=== PATIENT | female | born 1940 | race Caucasian/White ===

== ENCOUNTER 2019-07-12 08:29 | Day surgery (SDC) | payer MEDICARE ==
--- NOTE | 2019-07-12 07:42 | HP ---
DATE OF SURGERY: 07/12/2019 HISTORY OF PRESENT ILLNESS: The patient is a 78 year-old problems with food going down prior to . CT scan revealed hiatal hernia. She has history of tiny gallstone in the past. No prior upper endoscopy. She is in need of upper endoscopy for evaluation at this point. PAST MEDICAL HISTORY: Hypothyroidism. PAST SURGICAL HISTORY: Hysterectomy. Thyroid surgery in the past. MEDICATIONS: Levothyroxine. ALLERGIES: NKDA. FAMILY HISTORY: Stroke. Heart disease. Cancer. Alzheimer's. SOCIAL HISTORY: No alcohol abuse. REVIEW OF SYSTEMS: Fourteen systems reviewed. No chest pain or palpitations other systems negative or noncontributory as above and per preadmission questionnaire. PHYSICAL EXAMINATION: GENERAL: No acute distress. HEENT: Sclerae nonicteric. NECK: No JVD. CHEST: Equal excursion, nonlabored breathing. CVS: Regular rate and rhythm. ABDOMEN: Soft. No peritoneal signs. EXTREMITIES: No significant edema. NEURO: Alert, moving extremities symmetrically. No gross motor deficits noted. IMPRESSION: History of hiatal hernia, history of some food going down problems. I feel the patient would benefit from upper endoscopy for further evaluation of gastritis, peptic ulcer disease, general risk of bleeding or infection, risk of bowel injury or perforation possibly requiring open procedure, risk of missed or nondiagnosis or incomplete exam possibly requiring barium swallow, other studies or procedures, general risk of anesthesia or sedation. She understands if she has an isolated narrowed area may consider dilating it with a balloon. Otherwise general risk of anesthesia, deep venous thrombosis, pulmonary embolism, pneumonia but not limited to. She understands if does have narrowed area that is dilated she might need to be done again down the road. She understands and agrees to the planned procedure and will proceed with EGD with possible biopsy, possible dilatation as an outpatient.
[2019-07-12] MEDS ORDERED: Lactated Ringers 1,000 ML IV SCH (09:00)
[2019-07-12] MEDS ORDERED: DIPRIVAN 200 MG/20 ML IV ONE (10:16)
[2019-07-12 12:14] VITALS: O2SAT 94
[2019-07-12 12:22] VITALS: BP 162/84; PULSE 57
--- NOTE | 2019-07-12 15:12 | OP ---
SURGERY DATE/TIME: 07/12/2019 1024 PREOPERATIVE DIAGNOSIS: Epigastric pain, reflux and dysphagia. POSTOPERATIVE DIAGNOSES: 1) Minimal gastritis versus normal variation in stomach. 2) Hiatal hernia. 3) Symptomatic distal esophageal narrowing and spasm above hiatal hernia without evidence of any mass. PROCEDURES: 1) EGD with cold biopsy of the antrum to evaluate for Helicobacter pylori. 2) Esophageal dilatation distal esophageal narrowing and spasm (size 20 balloon dilator). SURGEON: Dr. Adal York. ANESTHESIA: MAC. ESTIMATED BLOOD LOSS: Minimal. INDICATIONS: As noted above. Risks and benefits explained in detail and not limited to and consent obtained. DESCRIPTION OF PROCEDURE AND FINDINGS: The patient is taken to the endoscopy room. MAC anesthesia introduced. After official time out and no disagreement with planned procedure, video gastroscope easily passed down the oropharynx to proximal esophagus. There was an area of narrowing and spasm in the distal esophagus right above a moderate sized hiatal hernia. There were no signs of any obvious mass or Richey's in this area but given the narrowing and she is having symptoms in this area, felt it is worthwhile attempting a trial of dilatation to see if this improves her symptoms. The scope passed to the hiatal through the patent pylorus to the junction of the second and third portion of the duodenum. Duodenum and duodenal bulb were grossly unremarkable. Scope pulled back in the stomach. She had some mild gastric erythema. Whether this is just some early gastritis but given her symptom complaints cold biopsy taken to evaluate for Helicobacter pylori. Good hemostasis noted. Whether this is just some mild gastropathy or early gastritis. On retroflex again she did have moderate sized hiatal hernia. No signs of any obvious ulcers, masses or other mucosal lesions. The scope was pulled back through the gastroesophageal junction where she had the narrowing and spasm. She is having symptoms. Whether some of this is related to narrowed area or whether it was really the hiatal hernia was unclear. It was felt trial with esophageal dilatation in this area. The remainder of the esophagus grossly unremarkable. No signs of any other mucosal lesions. The scope passed back down in the main part of the stomach. A 20 balloon catheter carefully inserted and is then pulled and the biopsy site in the antrum had good hemostasis. After advancing the 20 balloon catheter in the stomach under direct vision it was then pulled back up to the distal esophageal narrowing and spasm area above the hiatal hernia where it was carefully inflated first stage 45 seconds, second stage 45 seconds, final stage for 2 minutes size 20 balloon dilator. The balloon catheter then released and the balloon catheter withdrawn. The scope more easily passed through this area. Good hemostasis noted. There were no signs of any full thickness issues or injury secondary to balloon dilatation. The scope is withdrawn. The patient tolerated the procedure well. Findings discussed with the family out in the waiting area. We will see how she does with this trial balloon dilatation. If she has persistent symptoms may need to consider upper GI study to determine considering risks and benefits of hiatal hernia repair.
== END 2019-07-12 11:45 | disposition home or self-care (01) ==
LOC: SDC 08:29
PROVIDERS: ATTEND Surgery
DX: K22.2 Esophageal obstruction (principal); R13.10 Dysphagia, unspecified; K21.9 Gastro-esophageal reflux disease without esophagitis; K44.9 Diaphragmatic hernia without obstruction or gangrene; K29.70 Gastritis, unspecified, without bleeding; K22.4 Dyskinesia of esophagus
CPT/HCPCS: 87081; 99100; C1726; J2704

== ENCOUNTER 2019-08-16 11:44 | Day surgery (SDC) | payer MEDICARE ==
--- NOTE | 2019-08-16 09:58 | HP ---
DATE OF SURGERY: 08/16/2019 HISTORY OF PRESENT ILLNESS: The patient is a 78 year-old with history of some intermittent bloating, had history of hiatal hernia in the past and had gallstones. She had some increased bloating. She has had hiatal hernia as well as gallstones. She is interested in getting cholecystectomy to see if that did not improve her symptoms prior to considering hiatal hernia repair. PAST MEDICAL HISTORY: Hypothyroidism. PAST SURGICAL HISTORY: Hysterectomy and thyroid surgery in the past. 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 Her right lobe was removed at a later date. MEDICATIONS: Levothyroxine. ALLERGIES: NKDA. FAMILY HISTORY: Alzheimer's, stroke and cancer. SOCIAL HISTORY: No alcohol abuse. REVIEW OF SYSTEMS: Fourteen systems reviewed. No chest pain or palpitations. Other systems negative or noncontributory as above and per preadmission questionnaire. PHYSICAL EXAMINATION: GENERAL: No acute distress. HEENT: Sclerae nonicteric. NECK: No JVD. CHEST: Equal excursion, nonlabored breathing. CVS: Regular rate and rhythm. ABDOMEN: Soft. EXTREMITIES: No significant edema. NEURO: Alert, oriented, moving extremities symmetrically. No gross motor deficits noted. IMPRESSION: Symptomatic cholelithiasis, probable chronic cholecystitis. I feel the patient will benefit from cholecystectomy. Shown the risk sheet, explained in detail including but not limited to bleeding or infection, risk of trocar injury or hernia, risk of bowel, bladder or blood vessel injury, small risk of bile leak, bile duct injury, retained stone or sludge possibly requiring further procedure either open or ERCP, general risk of anesthesia, deep venous thrombosis, pulmonary embolism, pneumonia, perioperative risk of aches, pains, bloating, constipation and/or loose stools possibly even chronic in nature, possibility that this procedure may not improve her symptoms. She could continue to have further symptoms down the road and would need to consider repair of her very large hiatal hernia in the future. She understands and wishes to try the cholecystectomy, will proceed with laparoscopic cholecystectomy with possible open as an outpatient. She does understand the possibility that we may have to make an open incision would consider repairing the hernia at that time but otherwise laparoscopically will proceed with cholecystectomy first at this time.
[~2019-08-16 11:44] MED LIST: Lactated Ringers 1,000 ML IV ONE; Sensorcaine 0.25% 10 ML ONE
[2019-08-16] MEDS: MEFOXIN 2 GM PREMIX** 2 GM/50 ML ML IV SCH (11:54)
[2019-08-16] MEDS: Lactated Ringers 1,000 ML IV SCH (11:56)
[2019-08-16] MEDS ORDERED: DIPRIVAN 200 MG/20 ML IV ONE (12:25)
[2019-08-16] MEDS ORDERED: Zemuron 100 MG/10 ML ONE (12:25)
[2019-08-16] MEDS ORDERED: SUBLIMAZE 250 MCG/5 ML ONE (12:25)
[2019-08-16] MEDS ORDERED: SUBLIMAZE 100 MCG/2 ML ONE (14:29)
[2019-08-16] MEDS ORDERED: Zofran 4 MG/2 ML VIAL ONE (14:54)
[2019-08-16] MEDS ORDERED: Compazine 10 MG/2 ML ONE (15:31)
[2019-08-16] MEDS: Compazine 10 MG/2 ML IV ONE (15:37)
[2019-08-16 16:51] VITALS: O2SAT 95
[2019-08-16 17:08] VITALS: BP 136/57; PULSE 56
--- NOTE | 2019-08-17 10:00 | OP ---
SURGERY DATE/TIME: 08/16/2019 9862 PREOPERATIVE DIAGNOSES: 1) Symptomatic cholelithiasis, chronic cholecystitis. 2) History of hiatal hernia. POSTOPERATIVE DIAGNOSES: 1) Symptomatic cholelithiasis, chronic cholecystitis. 2) History of hiatal hernia. PROCEDURE: Laparoscopic cholecystectomy. SURGEON: Dr. Adal York. ANESTHESIA: General. ESTIMATED BLOOD LOSS: Minimal. INDICATIONS: As noted above. Risks and benefits explained in detail but not limited to and consent obtained. DESCRIPTION OF PROCEDURE AND FINDINGS: The patient was taken to the operating room. General anesthesia induced. Abdomen prepped and draped in the usual sterile fashion. After official time out and no disagreement with planned procedure, a transverse incision made at the supraumbilical area. Fascia grasped and pulled upward. Veress needle inserted and tested with saline. Pneumoperitoneum accomplished insufflating opening pressure of 0-15. A 5 mm bladeless port and camera inserted without difficulty followed by two - 5 mm right upper quadrant ports and 11 mm epigastric port. The gallbladder grasped retracted over the edge of the liver and laterally away from Calot's triangle dissecting posterior, lateral to anterior fashion. She had a lot of chronic reaction around this but slowly and carefully isolated until the critical view obtained both anteriorly and posteriorly. Once this was accomplished, cystic duct and cystic artery clipped x3 and divided in the usual fashion. Gallbladder slowly and carefully dissected free from its dense attachment to liver bed, clipping a couple additional oozing side branches off the cystic artery directly on the gallbladder wall. Just prior to releasing from final attachments to the anterior edge of the liver, there was an oozing vein on the anterior edge of the liver this was clipped. Gallbladder allowed to be freed and pulled up into the epigastrium, decompressed of bile, able to be pulled free and passed off. Copious amount of irrigation accomplished lateral to the liver and subhepatic space irrigating until clear. Liver bed re-inspected. Clips noted in place in cystic duct and cystic artery stumps. No sign of any active bleeding or bile leakage. It was felt there is no benefit from drain placement. At this point careful inspection of moderately large hiatal hernia identified. There was a large amount of stomach up into the chest. The stomach seemed to come down some. It is unclear if would be completely easily reducible or not at this time. Again, I had mentioned to the patient that we would try this. If symptoms are under control continue observation. Otherwise if she continued to have problems with hiatal hernia would be a much longer procedure repair with Randa-en-Y type procedure. At this point there is not enough room for puncture closure to be able to be used. Therefore epigastric wound closed under direct vision with UR needle and 0 Vicryl. Wound irrigated out. Pneumoperitoneum had been decompressed. Skin incision closed with 4-0 Vicryl. 0.25% Marcaine local injected along the skin incision fascial defect. Steri-Strips and sterile dressing applied. The patient tolerated the procedure well. There were no immediate complications. Findings discussed with the family out in the waiting area.
== END 2019-08-16 17:15 | disposition home or self-care (01) ==
LOC: SDC 11:44
PROVIDERS: ATTEND Surgery
DX: K80.10 Calculus of gallbladder with chronic cholecystitis without obstruction (principal); Z87.19 Personal history of other diseases of the digestive system; E03.9 Hypothyroidism, unspecified; Z79.899 Other long term (current) drug therapy
CPT/HCPCS: 88304; 99100; J0694; J2405; J2704; J3010

== ENCOUNTER 2023-10-13 08:30 | Day surgery (SDC) | payer MEDICARE ==
[2023-10-13] MEDS ORDERED: Lactated Ringers 1,000 ML IV ONE (08:35)
[2023-10-13] MEDS: Lactated Ringers 1,000 ML IV SCH (08:38)
[2023-10-13 08:43] VITALS: RESP 18
--- NOTE | 2023-10-13 09:01 | HP ---
PROCEDURE DATE: 10/13/2023 HISTORY OF PRESENT ILLNESS: 82 year-old with some coughing and some increased reflux in the morning, comes up in her mouth. Takes proton pump inhibitor. Prior history of large hiatal hernia repair with mesh. History of gastric reflux in the past. PAST MEDICAL HISTORY: Has had some hypertension, hypothyroidism, reflux. CURRENT MEDICATIONS: Dorzolamide eye drops, diltiazem, famotidine, pantoprazole, levothyroxine. ALLERGIES: NKDA. PAST SURGICAL HISTORY: Appendectomy, thyroidectomy, large hiatal hernia repair, hysterectomy in the past. FAMILY HISTORY: Stroke, heart disease, Alzheimer's. SOCIAL HISTORY: No smoking or alcohol abuse. REVIEW OF SYSTEMS: 12 systems reviewed. No chest pain or palpitations. Other systems negative or noncontributory other than above and per preadmission questionnaire. PHYSICAL EXAMINATION: Height 5' 4", BMI 30.72. GENERAL: No acute distress. HEENT: Sclerae nonicteric. Extraocular movements intact. Oral mucosa moist. NECK: No JVD. CHEST: Equal excursion. Nonlabored breathing. CVS: Regular rate and rhythm. ABDOMEN: Soft. EXTREMITIES: No cyanosis or edema. NEURO: Alert and oriented, moving extremities symmetrically. PSYCH: Appropriate mood and affect. SKIN: Dry. IMPRESSION: 1. INCREASED REFLUX. NEEDS FOLLOW-UP UPPER ENDOSCOPY. Risks, but not limited to, bleeding; infection; bowel injury possibly requiring open procedure; risk of incomplete exam possibly requiring barium enema or swallow study; possible missed or nondiagnosis; possible need for other procedure or referral; general risks of anesthesia/sedation, but not limited to. Will proceed with outpatient EGD, possible biopsy. Continue medications for reflux and thyroid.
[2023-10-13] MEDS ORDERED: DIPRIVAN 200 MG/20 ML IV ONE (10:49)
[2023-10-13 11:32] VITALS: O2SAT 97
[2023-10-13 11:50] VITALS: BP 184/90; PULSE 60; TEMP 97.8
--- NOTE | 2023-10-13 13:37 | OP ---
SURGERY DATE: 10/13/2023 SURGERY TIME: 1048 PREOPERATIVE DIAGNOSIS: 1. HISTORY OF INCREASED REFLUX. 2. HISTORY OF COUGHING A LOT. POSTOPERATIVE DIAGNOSIS: 1. ASA CLASS III. 2. MINIMAL TO MILD GASTRITIS. 3. SLIGHT HIATAL WEAKNESS, NO VISIBLE LARGE HIATAL HERNIA ON ENDOSCOPIC VIEW. 4. SHORT SEGMENT DISTAL ESOPHAGITIS. PROCEDURE: 1. EGD with cold biopsy of small bowel. 2. Cold biopsy of antrum for Helicobacter pylori. 3. Cold biopsy distal esophagus. SURGEON: Dr. Adal York. ANESTHESIA: MAC. ESTIMATED BLOOD LOSS: Minimal. INDICATIONS: As noted above. Risks explained in detail, but not limited to. Patient had prior history of large hiatal hernia repaired in the past. With this and increased reflux, felt she would benefit from upper endoscopy. Risks explained. Consent obtained. DESCRIPTION OF PROCEDURE AND FINDINGS: The patient was taken to the OR. MAC anesthesia induced. Official time-out performed. Video gastroscope passed down the esophagus through the esophagogastric junction to the junction of the 2nd and 3rd portion of the duodenum, to the junction of the 3rd and 4th portion of duodenum. The duodenum was fairly unremarkable. Just to rule out other causes or symptoms, cold biopsy was taken of the small bowel. Scope pulled back into the stomach. No signs of any ulcers. She did have some minimal to mild chronic gastric erythema. Cold biopsy was taken to evaluate for early inflammation or Helicobacter pylori. Good hemostasis noted. On retroflex, there was no evidence of any large hiatal hernia. There may be a slight hiatal weakness with patient's chronic coughing. The scope was pulled back. The gastroesophageal junction was about 30 cm. A short segment of what looked like a little bit of recurrent erosion or what looked like a questionable area from past issues. Cold biopsy was taken for histology. Good hemostasis noted. The patient tolerated procedure well. Findings discussed with the family out in the waiting area. Will see her back in the office next week. May need to decide to do an upper GI study on her at some point.
== END 2023-10-13 11:55 | disposition home or self-care (01) ==
LOC: SDC 08:30
PROVIDERS: ATTEND Surgery
DX: Z87.19 Personal history of other diseases of the digestive system (principal); K29.70 Gastritis, unspecified, without bleeding; K20.90 Esophagitis, unspecified without bleeding
CPT/HCPCS: 99100; J2704